=== PATIENT | female | born 1970 | race Caucasian/White ===

== ENCOUNTER 2017-03-10 16:50 | Inpatient (IN) | payer OTHER ==
[~2017-03-10] VITALS: Ht 165.1 cm; Wt 70.0 kg
[2017-03-10 17:12] VITALS: BP 100/83; PULSE 81; TEMP 98
[2017-03-10] MEDS ORDERED: PROTONIX 40MG T40 MG PO (17:12)
[2017-03-10] MEDS ORDERED: CARAFATE 1GM1 G PO (17:13)
[2017-03-10] MEDS ORDERED: ZOFRAN8 MG PO (17:13)
[2017-03-10] MEDS ORDERED: PHENERGAN 25 TA25 MG PO (17:14)
[2017-03-10] MEDS ORDERED: PREVACID 15MG15 M1 PO (17:15)
[2017-03-10] MEDS ORDERED: MIRALAX PA17 GM/Dose PO (17:16)
[2017-03-10 20:00] VITALS: BP 113/68; PULSE 83; TEMP 98.5
[2017-03-10 21:07] LABS: ADD PATHOLOGY DIFF REVIEW NO
[2017-03-10 21:09] LABS: MEAN CELL VOLUME 73 fl (80.0-100.0); MEAN CORPUSCULAR HGB CONC 31 g/dl (33.0-37.0); MEAN PLATELET VOLUME 9.4 fl (7.4-10.4); PLATELET COUNT 311 K/mm3 (130-400); RED BLOOD COUNT 4.06 M/mm3 (4.10-5.30); WHITE BLOOD COUNT 5.9 K/mm3 (4.8-10.8)
[2017-03-10 21:10] LABS: HEMATOCRIT 29.7 % (37.0-47.0); HEMOGLOBIN 9.1 g/dl (12.5-16.0); MEAN CORPUSCULAR HEMOGLOBIN 22 pg (27.0-31.0)
[2017-03-10 21:17] LABS: ADJUSTED CALCIUM 8.7 mg/dL (8.4-10.2); ALBUMIN 3.6 gm/dL (3.5-5.0); BILIRUBIN,TOTAL 0.2 mg/dL (0.0-1.0); CALCIUM 8.4 mg/dL (8.4-10.2); CREATININE, serum 0.5 mg/dL (0.52-1.25); TOTAL PROTEIN 6.5 gm/dL (6.4-8.2)
[2017-03-10 21:39] LABS: BAND 19 % (0-10); LYMPHOCYTE 23 % (20.0-51.0); NEUTROPHILS 52 % (42.0-75.2); TOTAL CELLS COUNTED 100
[2017-03-10 22:01] VITALS: BP 113/68; PULSE 83; TEMP 98.5
[2017-03-11 02:05] LABS: BASO # 0.1 (0.0-0.2); BASO % 0.7 % (0.0-2.0); EOS # 0.2 (0.0-0.7); EOS % 2.2 % (0-4.0); GRAN # 5.3 (1.4-6.5); GRAN % 63.9 % (42.2-75.2); LYMPH # 2.1 (1.2-3.4); LYMPH % 25.2 % (20.0-51.0); MEAN CELL VOLUME 74 fl (80.0-100.0); MEAN CORPUSCULAR HGB CONC 30 g/dl (33.0-37.0); MEAN PLATELET VOLUME 9.2 fl (7.4-10.4); MONO # 0.6 (0.1-0.6); MONO % 7.6 % (1.7-9.3); PLATELET COUNT 327 K/mm3 (130-400); RED BLOOD COUNT 4.13 M/mm3 (4.10-5.30); WHITE BLOOD COUNT 8.2 K/mm3 (4.8-10.8)
[2017-03-11 02:06] LABS: HEMATOCRIT 30.5 % (37.0-47.0); HEMOGLOBIN 9.1 g/dl (12.5-16.0); MEAN CORPUSCULAR HEMOGLOBIN 22 pg (27.0-31.0)
[2017-03-11 02:21] VITALS: BP 107/60; PULSE 76; TEMP 98
[2017-03-11 06:31] VITALS: BP 107/66; PULSE 83; TEMP 97.8
[2017-03-11 09:55] VITALS: BP 101/56; PULSE 75; TEMP 97.9
[2017-03-11 10:44] LABS: BASO % 0.5 % (0.0-2.0); EOS # 0.1 (0.0-0.7); EOS % 2.5 % (0-4.0); GRAN # 3.8 (1.4-6.5); GRAN % 68.1 % (42.2-75.2); LYMPH % 18.8 % (20.0-51.0); MEAN CELL VOLUME 73 fl (80.0-100.0); MEAN CORPUSCULAR HGB CONC 30 g/dl (33.0-37.0); MEAN PLATELET VOLUME 10.1 fl (7.4-10.4); MONO # 0.5 (0.1-0.6); MONO % 9.7 % (1.7-9.3); PLATELET COUNT 249 K/mm3 (130-400); RED BLOOD COUNT 3.87 M/mm3 (4.10-5.30); WHITE BLOOD COUNT 5.5 K/mm3 (4.8-10.8)
[2017-03-11 10:45] LABS: HEMATOCRIT 28.4 % (37.0-47.0); HEMOGLOBIN 8.6 g/dl (12.5-16.0); MEAN CORPUSCULAR HEMOGLOBIN 22 pg (27.0-31.0)
[2017-03-11 14:18] VITALS: BP 121/59; PULSE 87; TEMP 98.3
[2017-03-11 15:03] LABS: MEAN CELL VOLUME 74 fl (80.0-100.0); MEAN CORPUSCULAR HGB CONC 31 g/dl (33.0-37.0); MEAN PLATELET VOLUME 8.9 fl (7.4-10.4); PLATELET COUNT 318 K/mm3 (130-400); RED BLOOD COUNT 4.08 M/mm3 (4.10-5.30); WHITE BLOOD COUNT 6.5 K/mm3 (4.8-10.8)
[2017-03-11 15:05] LABS: HEMOGLOBIN 9.2 g/dl (12.5-16.0); MEAN CORPUSCULAR HEMOGLOBIN 23 pg (27.0-31.0)
[2017-03-11 17:00] LABS: ALBUMIN 3.6 gm/dL (3.5-5.0); BILIRUBIN,TOTAL 0.3 mg/dL (0.0-1.0); CALCIUM 8.7 mg/dL (8.4-10.2); CREATININE, serum 0.47 mg/dL (0.52-1.25); TOTAL PROTEIN 6.6 gm/dL (6.4-8.2)
[2017-03-11 17:35] VITALS: BP 111/62; PULSE 87; TEMP 98.3
[2017-03-11 19:55] LABS: HEMATOCRIT 28.1 % (37.0-47.0); HEMOGLOBIN 8.6 g/dl (12.5-16.0); MEAN CELL VOLUME 73 fl (80.0-100.0); MEAN CORPUSCULAR HEMOGLOBIN 22 pg (27.0-31.0); MEAN CORPUSCULAR HGB CONC 31 g/dl (33.0-37.0); PLATELET COUNT 273 K/mm3 (130-400); RED BLOOD COUNT 3.84 M/mm3 (4.10-5.30); WHITE BLOOD COUNT 6.1 K/mm3 (4.8-10.8)
[2017-03-11 21:18] VITALS: BP 113/60; PULSE 84; TEMP 98.8
[2017-03-12 04:56] VITALS: BP 106/66; PULSE 80; TEMP 98.3
[2017-03-12 05:48] LABS: MEAN CELL VOLUME 73 fl (80.0-100.0); MEAN CORPUSCULAR HGB CONC 31 g/dl (33.0-37.0); MEAN PLATELET VOLUME 9.1 fl (7.4-10.4); PLATELET COUNT 250 K/mm3 (130-400); RED BLOOD COUNT 3.57 M/mm3 (4.10-5.30)
[2017-03-12 05:49] LABS: HEMATOCRIT 26.2 % (37.0-47.0); MEAN CORPUSCULAR HEMOGLOBIN 22 pg (27.0-31.0)
[2017-03-12 09:44] VITALS: BP 105/60; PULSE 70; TEMP 97.9
[2017-03-12 14:31] VITALS: BP 94/60; PULSE 68; TEMP 98
[2017-03-12 17:53] VITALS: BP 120/78; PULSE 76; TEMP 98.3
[2017-03-12 20:00] VITALS: BP 117/76; PULSE 86; TEMP 98.2
[2017-03-13 01:00] VITALS: BP 111/64; PULSE 82; TEMP 98.1
[2017-03-13 05:15] VITALS: BP 112/73; PULSE 85; TEMP 97.9
[2017-03-13 09:42] VITALS: BP 98/70; PULSE 77; TEMP 98
[2017-03-13 11:58] LABS: MEAN CELL VOLUME 72 fl (80.0-100.0); MEAN CORPUSCULAR HGB CONC 31 g/dl (33.0-37.0); MEAN PLATELET VOLUME 9.3 fl (7.4-10.4); PLATELET COUNT 327 K/mm3 (130-400); RED BLOOD COUNT 4.12 M/mm3 (4.10-5.30); WHITE BLOOD COUNT 8.7 K/mm3 (4.8-10.8)
[2017-03-13 12:10] LABS: HEMATOCRIT 29.7 % (37.0-47.0); HEMOGLOBIN 9.3 g/dl (12.5-16.0); MEAN CORPUSCULAR HEMOGLOBIN 23 pg (27.0-31.0)
[2017-03-13 13:23] VITALS: BP 112/72; PULSE 97; TEMP 98.8
[2017-03-13 17:50] VITALS: BP 116/70; PULSE 86; TEMP 98.5
[2017-03-13 20:47] VITALS: BP 127/72; PULSE 91; TEMP 9836
[2017-03-14] MEDS ORDERED: ZOFRAN ODT4 MG PO (20:17)
[2017-03-14] MEDS ORDERED: PERCOCET 325 MG1 TA2 PO (20:17)
[2017-03-14] MEDS ORDERED: PHENERGAN 25 TA25 MG PO (20:17)
== END 2017-03-14 00:20 | disposition left against medical advice (07) | DRG 379 ==
LOC: SURG 16:50
PROVIDERS: Family Medicine; Internal Medicine Cardiovascular Disease; Internal Medicine Gastroenterology
PROC: 0DJ08ZZ Inspection of Upper Intestinal Tract, Via Natural or Artificial Opening Endoscopic (ICD-10-PCS; principal; 2017-03-10 18:20)
DX: K26.0 Acute duodenal ulcer with hemorrhage (principal); F17.210 Nicotine dependence, cigarettes, uncomplicated; I95.9 Hypotension, unspecified; Z98.84 Bariatric surgery status
CPT/HCPCS: OP; 99223-AI; 99232-AI; C9113; J1170; J2405; J2550; J2704; J7030; Q9967

== ENCOUNTER 2017-03-14 17:52 | Emergency (ER) | payer OTHER ==
[~2017-03-14] VITALS: Ht 165.1 cm; Wt 63.6 kg
[~2017-03-14 17:52] MED LIST: CARAFATE 1GM1 G PO; MIRALAX PA17 GM/Dose PO; PHENERGAN 25 TA25 MG PO; PREVACID 15MG15 M1 PO; PROTONIX 40MG T40 MG PO; ZOFRAN8 MG PO
[2017-03-14 19:16] LABS: PH 8 (5-8); SQUAMOUS EPITHELIAL 0-2 /hpf; URINE APPEARANCE Clear; URINE BACTERIA None Seen /hpf; URINE BILIRUBIN Negative (NEGATIVE); URINE BLOOD Negative (NEGATIVE); URINE COLOR Straw; URINE GLUCOSE Negative (NEGATIVE); URINE KETONE Negative (NEGATIVE); URINE RBC 0-2 /hpf; URINE UROBILINOGEN Negative (NEGATIVE)
[2017-03-14 19:42] LABS: BASO # 0.1 (0.0-0.2); BASO % 0.8 % (0.0-2.0); EOS # 0.1 (0.0-0.7); EOS % 1.1 % (0-4.0); GRAN # 4.8 (1.4-6.5); GRAN % 66.5 % (42.2-75.2); LYMPH # 1.7 (1.2-3.4); LYMPH % 23.4 % (20.0-51.0); MEAN CELL VOLUME 74 fl (80.0-100.0); MEAN CORPUSCULAR HGB CONC 30 g/dl (33.0-37.0); MEAN PLATELET VOLUME 9.1 fl (7.4-10.4); MONO # 0.6 (0.1-0.6); MONO % 7.6 % (1.7-9.3); PLATELET COUNT 325 K/mm3 (130-400); REDCELL DISTRIBUTION WIDTH-CV 18.3 % (11.5-14.5); WHITE BLOOD COUNT 7.2 K/mm3 (4.8-10.8)
[2017-03-14 19:43] LABS: HEMATOCRIT 31.2 % (37.0-47.0); HEMOGLOBIN 9.4 g/dl (12.5-16.0); MEAN CORPUSCULAR HEMOGLOBIN 22 pg (27.0-31.0)
[2017-03-14 20:07] LABS: ADJUSTED CALCIUM 9.2 mg/dL (8.4-10.2); BILIRUBIN,TOTAL 0.3 mg/dL (0.0-1.0); CALCIUM 9.2 mg/dL (8.4-10.2); CREATININE, serum 0.47 mg/dL (0.52-1.25); POTASSIUM 4.2 mmol/L (3.4-5.0); TOTAL PROTEIN 7.1 gm/dL (6.4-8.2)
[2017-03-14] MEDS ORDERED: ZOFRAN ODT4 MG PO (20:17)
[2017-03-14] MEDS ORDERED: PHENERGAN 25 TA25 MG PO (20:17)
[2017-03-14] MEDS ORDERED: PERCOCET 325 MG1 TA2 PO (20:17)
[2017-03-14 20:27] VITALS: BP 111/77; PULSE 95; TEMP 98.4
== END 2017-03-14 20:25 | disposition home or self-care (01) ==
LOC: COL.ER 17:52
PROVIDERS: Emergency Medicine
DX: R10.13 Epigastric pain (principal); R10.12 Left upper quadrant pain; R11.2 Nausea with vomiting, unspecified; E11.9 Type 2 diabetes mellitus without complications; E66.01 Morbid (severe) obesity due to excess calories; F17.210 Nicotine dependence, cigarettes, uncomplicated; Z98.84 Bariatric surgery status; Z68.23 Body mass index [BMI] 23.0-23.9, adult

== ENCOUNTER 2017-12-26 11:36 | Inpatient (IN) | payer OTHER ==
[~2017-12-26] VITALS: Ht 165.1 cm; Wt 65.3 kg
[~2017-12-26 11:36] MED LIST changes: +PERCOCET 325 MG1 TA2 PO; +ZOFRAN ODT4 MG PO
[2017-12-26 12:07] LABS: BASO # 0.1 (0.0-0.2); BASO % 0.7 % (0.0-2.0); EOS # 0.2 (0.0-0.7); EOS % 1.8 % (0-4.0); GRAN # 6.3 (1.4-6.5); GRAN % 75.3 % (42.2-75.2); HEMOGLOBIN 10.6 g/dl (12.5-16.0); LYMPH # 1.4 (1.2-3.4); LYMPH % 16.7 % (20.0-51.0); MEAN CELL VOLUME 76 fl (80.0-100.0); MEAN CORPUSCULAR HEMOGLOBIN 23 pg (27.0-31.0); MEAN CORPUSCULAR HGB CONC 29 g/dl (33.0-37.0); MEAN PLATELET VOLUME 9.4 fl (7.4-10.4); MONO # 0.4 (0.1-0.6); MONO % 5.3 % (1.7-9.3); PLATELET COUNT 418 K/mm3 (130-400); RED BLOOD COUNT 4.72 M/mm3 (4.10-5.30); REDCELL DISTRIBUTION WIDTH-CV 26.3 % (11.5-14.5)
[2017-12-26 12:11] LABS: PROTHROMBIN TIME 11.6 SECONDS (9.7-12.8)
[2017-12-26 12:14] LABS: PARTIAL THROMBOPLASTIN TIME 32.2 SECONDS (26.0-37.0)
[2017-12-26 12:22] LABS: ALANINE AMINOTRANSFERASE 21 U/L (9-52); ALBUMIN 3.9 gm/dL (3.5-5.0); ALKALINE PHOSPHATASE 99 U/L (50-136); ANION GAP 10 mmol/L (7-16); AST,SGOT 29 U/L (15-37); BILIRUBIN,TOTAL 0.5 mg/dL (0.0-1.0); BLOOD UREA NITROGEN 8 mg/dL (7-17); C-REACTIVE PROTEIN 0.6 mg/dL (0.0-0.9); CARBON DIOXIDE 25 mmol/L (22-30); CHLORIDE 105 mmol/L (98-107); CREATININE, serum 0.46 mg/dL (0.52-1.25); GLUCOSE 112 mg/dL (74-106); LIPASE 31 U/L (23-300); POTASSIUM 3.7 mmol/L (3.4-5.0); SODIUM 141 mmol/L (137-145); TOTAL PROTEIN 7.2 gm/dL (6.4-8.2)
[2017-12-26 12:32] LABS: TROPONIN-I < 0.012 ng/mL (0.000-0.034)
[2017-12-26 12:56] LABS: COLLECTION METHOD CLEAN CATCH
[2017-12-26 13:16] LABS: MUCOUS Present /lpf; PH 8 (5-8); SQUAMOUS EPITHELIAL 0-2 /hpf; URINE APPEARANCE Clear; URINE BACTERIA None Seen /hpf; URINE BILIRUBIN Negative (NEGATIVE); URINE BLOOD 3+ (NEGATIVE); URINE COLOR Yellow; URINE GLUCOSE Negative (NEGATIVE); URINE KETONE Negative (NEGATIVE); URINE LEUKOCYTE ESTERASE Negative (NEGATIVE); URINE NITRATE Negative (NEGATIVE); URINE PROTEIN(semi-quant) Negative (NEGATIVE); URINE RBC >50 /hpf; URINE UROBILINOGEN Negative (NEGATIVE)
[2017-12-26 15:16] LABS: IRON,SERUM 22 ug/dL (35-150)
[2017-12-26 15:26] LABS: TOTAL IRON BINDING CAPACITY 407 ug/dL (265-497)
[2017-12-26 15:26] LABS: RETIC # 0.07 M/mm3 (0.02-0.16); RETIC % 1.7 % (0.5-3.52)
[2017-12-26 15:27] LABS: HEMATOCRIT 32.9 % (37.0-47.0); HEMOGLOBIN 9.6 g/dl (12.5-16.0)
[2017-12-26 15:55] LABS: FERRITIN 44 ng/mL (6-137)
[2017-12-26 17:28] VITALS: BP 121/74; PULSE 74; TEMP 98.4
[2017-12-26 19:00] VITALS: BP 121/74; PULSE 74; TEMP 98.4
[2017-12-26 20:42] VITALS: BP 108/80; PULSE 71; TEMP 98.5
[2017-12-26 21:35] LABS: HEMATOCRIT 31.1 % (37.0-47.0); HEMOGLOBIN 9.4 g/dl (12.5-16.0)
[2017-12-27 00:43] VITALS: BP 112/63; PULSE 84; TEMP 98.3
[2017-12-27 03:01] LABS: BASO % 0.5 % (0.0-2.0); EOS # 0.2 (0.0-0.7); EOS % 1.9 % (0-4.0); GRAN # 6.8 (1.4-6.5); GRAN % 86.5 % (42.2-75.2); LYMPH # 0.7 (1.2-3.4); LYMPH % 9.1 % (20.0-51.0); MEAN CELL VOLUME 79 fl (80.0-100.0); MEAN CORPUSCULAR HGB CONC 29 g/dl (33.0-37.0); MEAN PLATELET VOLUME 9.5 fl (7.4-10.4); MONO # 0.1 (0.1-0.6); MONO % 1.6 % (1.7-9.3); RED BLOOD COUNT 4.07 M/mm3 (4.10-5.30); REDCELL DISTRIBUTION WIDTH-CV 25.2 % (11.5-14.5)
[2017-12-27 03:07] LABS: HEMOGLOBIN 9.3 g/dl (12.5-16.0); MEAN CORPUSCULAR HEMOGLOBIN 23 pg (27.0-31.0)
[2017-12-27 03:08] LABS: PLATELET COUNT 309 K/mm3 (130-400)
[2017-12-27 03:11] LABS: CALCIUM 8.5 mg/dL (8.4-10.2); CREATININE, serum 0.47 mg/dL (0.52-1.25); POTASSIUM 3.6 mmol/L (3.4-5.0)
[2017-12-27 04:48] VITALS: BP 109/70; PULSE 108; TEMP 103.1
[2017-12-27 05:41] LABS: COLLECTION METHOD CLEAN CATCH
[2017-12-27 05:48] LABS: MUCOUS Present /lpf; PH 5 (5-8); URINE APPEARANCE Hazy; URINE BACTERIA None Seen /hpf; URINE BILIRUBIN Negative (NEGATIVE); URINE BLOOD Negative (NEGATIVE); URINE COLOR Yellow; URINE GLUCOSE Negative (NEGATIVE); URINE KETONE Negative (NEGATIVE); URINE LEUKOCYTE ESTERASE 1+ (NEGATIVE); URINE NITRATE Negative (NEGATIVE); URINE PROTEIN(semi-quant) Negative (NEGATIVE); URINE RBC 0-2 /hpf; URINE UROBILINOGEN Negative (NEGATIVE)
[2017-12-27 05:54] LABS: TRICYCLIC ANTIDEPRESS URINE NEGATIVE
[2017-12-27 08:22] LABS: ALANINE AMINOTRANSFERASE 30 U/L (9-52); ALBUMIN 3.5 gm/dL (3.5-5.0); ALKALINE PHOSPHATASE 103 U/L (50-136); ANION GAP 11 mmol/L (7-16); AST,SGOT 29 U/L (15-37); BILIRUBIN,TOTAL 0.4 mg/dL (0.0-1.0); BLOOD UREA NITROGEN 6 mg/dL (7-17); CALCIUM 8.2 mg/dL (8.4-10.2); CARBON DIOXIDE 23 mmol/L (22-30); CHLORIDE 102 mmol/L (98-107); CREATININE, serum 0.51 mg/dL (0.52-1.25); GLUCOSE 103 mg/dL (74-106); POTASSIUM 3.1 mmol/L (3.4-5.0); SODIUM 137 mmol/L (137-145); TOTAL PROTEIN 6.4 gm/dL (6.4-8.2)
[2017-12-27 08:27] LABS: ALCOHOL(ethanol),MEDICAL < 10 mg/dL
[2017-12-27 09:07] VITALS: BP 109/67; PULSE 96; TEMP 99.3
[2017-12-27 13:34] VITALS: BP 94/39; PULSE 85; TEMP 99.2
[2017-12-27 16:10] VITALS: BP 135/79; PULSE 76; TEMP 98.9
[2017-12-27 16:56] LABS: HEMATOCRIT 26.7 % (37.0-47.0)
[2017-12-27 20:22] VITALS: BP 112/64; PULSE 84; TEMP 98.3
[2017-12-27 21:17] LABS: HEMATOCRIT 28.4 % (37.0-47.0); HEMOGLOBIN 8.4 g/dl (12.5-16.0)
[2017-12-28 00:31] VITALS: BP 106/61; PULSE 78; TEMP 97.6
[2017-12-28 04:30] VITALS: BP 84/44; PULSE 57; TEMP 97.9
[2017-12-28 07:58] LABS: BASO % 0.6 % (0.0-2.0); EOS # 0.2 (0.0-0.7); EOS % 2.7 % (0-4.0); GRAN # 4.5 (1.4-6.5); GRAN % 67.3 % (42.2-75.2); LYMPH # 1.2 (1.2-3.4); LYMPH % 17.3 % (20.0-51.0); MEAN CELL VOLUME 79 fl (80.0-100.0); MEAN CORPUSCULAR HGB CONC 29 g/dl (33.0-37.0); MEAN PLATELET VOLUME 9.8 fl (7.4-10.4); MONO # 0.8 (0.1-0.6); MONO % 11.7 % (1.7-9.3); PLATELET COUNT 267 K/mm3 (130-400); RED BLOOD COUNT 3.45 M/mm3 (4.10-5.30); REDCELL DISTRIBUTION WIDTH-CV 25.2 % (11.5-14.5)
[2017-12-28 08:00] LABS: HEMATOCRIT 27.4 % (37.0-47.0); MEAN CORPUSCULAR HEMOGLOBIN 23 pg (27.0-31.0)
[2017-12-28 08:13] LABS: CALCIUM 7.8 mg/dL (8.4-10.2); CREATININE, serum 0.52 mg/dL (0.52-1.25); POTASSIUM 3.6 mmol/L (3.4-5.0)
[2017-12-28 08:26] VITALS: BP 87/85; PULSE 61; TEMP 98.2
[2017-12-28] MEDS ORDERED: NORCO 325 MG-51 TAB PO (09:39)
[2017-12-28] MEDS ORDERED: ZOFRAN 4MG T4 MG/TAB PO (09:39)
[2017-12-28] MEDS ORDERED: PROTONIX 40MG T40 MG PO (10:39)
== END 2017-12-28 11:53 | disposition home or self-care (01) | DRG 381 ==
LOC: COL.ER 11:36 → MEDICAL 13:42
PROVIDERS: Emergency Medicine; Internal Medicine Gastroenterology; Nurse Practitioner Family; Physician Assistant
PROC: 0DJ08ZZ Inspection of Upper Intestinal Tract, Via Natural or Artificial Opening Endoscopic (ICD-10-PCS; principal; 2017-12-27 11:45)
DX: K22.11 Ulcer of esophagus with bleeding (principal); D62 Acute posthemorrhagic anemia; Z87.891 Personal history of nicotine dependence; Z98.84 Bariatric surgery status; Z85.42 Personal history of malignant neoplasm of other parts of uterus; R50.9 Fever, unspecified
CPT/HCPCS: 99223-AI; 99233-AI; 99239; C1751; C9113; G0378; J0696; J1170; J2405; J2550; J2704; J7030; J7120; Q9967

== ENCOUNTER 2018-01-04 15:48 | Emergency (ER) | payer OTHER ==
[~2018-01-04] VITALS: Ht 165.1 cm; Wt 59.1 kg
[~2018-01-04 15:48] MED LIST changes: +NORCO 325 MG-51 TAB PO; +ZOFRAN 4MG T4 MG/TAB PO
[2018-01-04 15:50] VITALS: BP 117/70; TEMP 98
[2018-01-04 16:50] LABS: COLLECTION METHOD CLEAN CATCH
[2018-01-04 16:56] LABS: MUCOUS Present /lpf; PH 6 (5-8); SQUAMOUS EPITHELIAL 20-50 /hpf; URINE APPEARANCE Cloudy; URINE BACTERIA Rare /hpf; URINE BILIRUBIN Negative (NEGATIVE); URINE BLOOD Negative (NEGATIVE); URINE COLOR Yellow; URINE GLUCOSE Negative (NEGATIVE); URINE KETONE Negative (NEGATIVE); URINE LEUKOCYTE ESTERASE 1+ (NEGATIVE); URINE NITRATE Negative (NEGATIVE); URINE PROTEIN(semi-quant) Negative (NEGATIVE); URINE UROBILINOGEN Negative (NEGATIVE)
[2018-01-04 17:04] LABS: BASO # 0.1 (0.0-0.2); BASO % 0.7 % (0.0-2.0); EOS # 0.1 (0.0-0.7); EOS % 1.7 % (0-4.0); GRAN # 6.3 (1.4-6.5); GRAN % 77.4 % (42.2-75.2); HEMATOCRIT 38.3 % (37.0-47.0); HEMOGLOBIN 11.5 g/dl (12.5-16.0); LYMPH # 1.3 (1.2-3.4); LYMPH % 15.4 % (20.0-51.0); MEAN CELL VOLUME 75 fl (80.0-100.0); MEAN CORPUSCULAR HEMOGLOBIN 23 pg (27.0-31.0); MEAN CORPUSCULAR HGB CONC 30 g/dl (33.0-37.0); MEAN PLATELET VOLUME 9.2 fl (7.4-10.4); MONO # 0.4 (0.1-0.6); MONO % 4.3 % (1.7-9.3); PLATELET COUNT 338 K/mm3 (130-400); RED BLOOD COUNT 5.11 M/mm3 (4.10-5.30); REDCELL DISTRIBUTION WIDTH-CV 24.2 % (11.5-14.5)
[2018-01-04 17:15] LABS: ALANINE AMINOTRANSFERASE 19 U/L (9-52); ALBUMIN 4.3 gm/dL (3.5-5.0); ALKALINE PHOSPHATASE 107 U/L (50-136); ANION GAP 11 mmol/L (7-16); AST,SGOT 25 U/L (15-37); BILIRUBIN,TOTAL 0.2 mg/dL (0.0-1.0); BLOOD UREA NITROGEN 14 mg/dL (7-17); C-REACTIVE PROTEIN 0.6 mg/dL (0.0-0.9); CALCIUM 9.6 mg/dL (8.4-10.2); CARBON DIOXIDE 27 mmol/L (22-30); CHLORIDE 100 mmol/L (98-107); CREATININE, serum 0.46 mg/dL (0.52-1.25); GLUCOSE 101 mg/dL (74-106); LIPASE 24 U/L (23-300); POTASSIUM 4.2 mmol/L (3.4-5.0); SODIUM 139 mmol/L (137-145); TOTAL PROTEIN 7.8 gm/dL (6.4-8.2)
[2018-01-04 17:24] LABS: TROPONIN-I < 0.012 ng/mL (0.000-0.034)
[2018-01-04 18:41] LABS: COLLECTION METHOD CLEAN CATCH
[2018-01-04 18:59] LABS: BUDDING YEAST Present /hpf; MUCOUS Present /lpf; PH 8 (5-8); SQUAMOUS EPITHELIAL 0-2 /hpf; URINE APPEARANCE Clear; URINE BACTERIA None Seen /hpf; URINE BILIRUBIN Negative (NEGATIVE); URINE BLOOD 3+ (NEGATIVE); URINE COLOR Yellow; URINE GLUCOSE Negative (NEGATIVE); URINE KETONE Negative (NEGATIVE); URINE LEUKOCYTE ESTERASE Negative (NEGATIVE); URINE NITRATE Negative (NEGATIVE); URINE PROTEIN(semi-quant) Negative (NEGATIVE); URINE RBC >50 /hpf; URINE UROBILINOGEN Negative (NEGATIVE)
[2018-01-04] MEDS ORDERED: PROTONIX 40MG T40 MG PO (19:14)
[2018-01-04] MEDS ORDERED: ZOFRAN 4MG T4 MG/TAB PO (19:14)
[2018-01-04 19:35] VITALS: PULSE 68
== END 2018-01-04 19:35 | disposition home or self-care (01) ==
LOC: COL.ER 15:48
PROVIDERS: Emergency Medicine
DX: K92.2 Gastrointestinal hemorrhage, unspecified (principal); F17.210 Nicotine dependence, cigarettes, uncomplicated; Z98.84 Bariatric surgery status
CPT/HCPCS: C9113; J1170; J2405; J7030; Q9967

== ENCOUNTER 2018-01-13 15:38 | Observation (INO) | payer OTHER ==
[~2018-01-13] VITALS: Ht 165.1 cm; Wt 67.0 kg
[2018-01-13] MEDS ORDERED: CARAFATE 1GM1 G PO (15:55)
[2018-01-13 16:19] LABS: BASO % 0.6 % (0.0-2.0); EOS # 0.2 (0.0-0.7); EOS % 2.6 % (0-4.0); GRAN # 4.5 (1.4-6.5); GRAN % 64.5 % (42.2-75.2); LYMPH # 1.9 (1.2-3.4); LYMPH % 26.5 % (20.0-51.0); MEAN CELL VOLUME 75 fl (80.0-100.0); MEAN CORPUSCULAR HEMOGLOBIN 23 pg (27.0-31.0); MEAN CORPUSCULAR HGB CONC 30 g/dl (33.0-37.0); MEAN PLATELET VOLUME 9.2 fl (7.4-10.4); MONO # 0.4 (0.1-0.6); MONO % 5.5 % (1.7-9.3); PLATELET COUNT 333 K/mm3 (130-400); RED BLOOD COUNT 4.87 M/mm3 (4.10-5.30); REDCELL DISTRIBUTION WIDTH-CV 23.1 % (11.5-14.5)
[2018-01-13 16:20] LABS: HEMATOCRIT 36.3 % (37.0-47.0)
[2018-01-13 16:21] LABS: PROTHROMBIN TIME 11.5 SECONDS (9.7-12.8)
[2018-01-13 16:35] LABS: ALBUMIN 4.4 gm/dL (3.5-5.0); BILIRUBIN,TOTAL 0.3 mg/dL (0.0-1.0); CALCIUM 9.6 mg/dL (8.4-10.2); CREATININE, serum 0.49 mg/dL (0.52-1.25); TOTAL PROTEIN 7.7 gm/dL (6.4-8.2)
[2018-01-13 18:20] VITALS: BP 112/70; PULSE 67
[2018-01-13 21:02] VITALS: BP 114/82; PULSE 71; TEMP 98.5
[2018-01-13 22:18] LABS: HEMOGLOBIN 10.4 g/dl (12.5-16.0)
[2018-01-13 22:21] LABS: HEMATOCRIT 34.6 % (37.0-47.0)
[2018-01-14 04:57] VITALS: BP 119/82; PULSE 101; TEMP 99.1
[2018-01-14 07:52] VITALS: BP 129/72; PULSE 96; TEMP 98.7
[2018-01-14 08:02] LABS: COLLECTION METHOD CLEAN CATCH
[2018-01-14 08:15] LABS: MUCOUS Present /lpf; PH 5 (5-8); SQUAMOUS EPITHELIAL 0-2 /hpf; URINE APPEARANCE Clear; URINE BACTERIA None Seen /hpf; URINE BILIRUBIN Negative (NEGATIVE); URINE BLOOD Negative (NEGATIVE); URINE COLOR Yellow; URINE GLUCOSE Negative (NEGATIVE); URINE KETONE Negative (NEGATIVE); URINE LEUKOCYTE ESTERASE Negative (NEGATIVE); URINE NITRATE Negative (NEGATIVE); URINE PROTEIN(semi-quant) Negative (NEGATIVE); URINE RBC 0-2 /hpf; URINE UROBILINOGEN Negative (NEGATIVE)
[2018-01-14 11:35] LABS: GASTROCCULT POSITIVE; pH GASTRIC CONTENTS 1
[2018-01-14 12:52] VITALS: BP 112/83; PULSE 101; TEMP 99.2
[2018-01-14 13:17] LABS: BASO # 0.1 (0.0-0.2); BASO % 0.5 % (0.0-2.0); EOS # 0.1 (0.0-0.7); EOS % 1.2 % (0-4.0); GRAN # 8.5 (1.4-6.5); LYMPH % 9.5 % (20.0-51.0); MEAN CELL VOLUME 76 fl (80.0-100.0); MEAN CORPUSCULAR HGB CONC 30 g/dl (33.0-37.0); MEAN PLATELET VOLUME 9.4 fl (7.4-10.4); MONO # 0.8 (0.1-0.6); MONO % 7.5 % (1.7-9.3); PLATELET COUNT 265 K/mm3 (130-400); RED BLOOD COUNT 4.23 M/mm3 (4.10-5.30); REDCELL DISTRIBUTION WIDTH-CV 22.2 % (11.5-14.5)
[2018-01-14 13:18] LABS: HEMOGLOBIN 9.6 g/dl (12.5-16.0); MEAN CORPUSCULAR HEMOGLOBIN 23 pg (27.0-31.0)
[2018-01-14 13:25] LABS: CALCIUM 8.7 mg/dL (8.4-10.2); CREATININE, serum 0.5 mg/dL (0.52-1.25); POTASSIUM 3.9 mmol/L (3.4-5.0)
== END 2018-01-14 17:00 | disposition left against medical advice (07) ==
LOC: COL.ER 15:38 → SURG 18:18
PROVIDERS: Emergency Medicine; Hospitalist; Internal Medicine Gastroenterology; Nurse Practitioner Family
DX: R10.11 Right upper quadrant pain (principal); K92.0 Hematemesis; K92.2 Gastrointestinal hemorrhage, unspecified; F17.210 Nicotine dependence, cigarettes, uncomplicated; Z90.710 Acquired absence of both cervix and uterus; Z90.49 Acquired absence of other specified parts of digestive tract; Z83.3 Family history of diabetes mellitus; Z88.6 Allergy status to analgesic agent; Z88.2 Allergy status to sulfonamides; Z88.8 Allergy status to other drugs, medicaments and biological substances; Z53.8 Procedure and treatment not carried out for other reasons
CPT/HCPCS: C9113; G0378; J1170; J2060; J2270; J2405; J2550; J7030; Q9967

== ENCOUNTER 2018-02-16 18:04 | Emergency (ER) | payer OTHER ==
[~2018-02-16] VITALS: Ht 165.1 cm; Wt 62.7 kg
[2018-02-16 18:09] VITALS: TEMP 99
[2018-02-16] MEDS ORDERED: NORCO 325 MG-51 TAB PO (19:17)
[2018-02-16 20:22] VITALS: BP 110/69; PULSE 82
== END 2018-02-16 20:25 | disposition home or self-care (01) ==
LOC: COL.ER 18:04
DX: M79.641 Pain in right hand (principal); Z88.5 Allergy status to narcotic agent; W01.0XXA Fall on same level from slipping, tripping and stumbling without subsequent striking against object, initial encounter; Y92.009 Unspecified place in unspecified non-institutional (private) residence as the place of occurrence of the external cause
CPT/HCPCS: J3010; Q4021; Q4050

== ENCOUNTER 2018-03-03 13:05 | Emergency (ER) | payer OTHER ==
[~2018-03-03] VITALS: Ht 165.1 cm; Wt 65.0 kg
[2018-03-03 13:09] VITALS: TEMP 98.7
[2018-03-03 13:48] LABS: BASO % 0.5 % (0.0-2.0); EOS # 0.1 (0.0-0.7); EOS % 1.8 % (0-4.0); GRAN # 5.7 (1.4-6.5); GRAN % 73.7 % (42.2-75.2); HEMOGLOBIN 10.6 g/dl (12.5-16.0); LYMPH # 1.5 (1.2-3.4); LYMPH % 18.6 % (20.0-51.0); MEAN CELL VOLUME 72 fl (80.0-100.0); MEAN CORPUSCULAR HEMOGLOBIN 22 pg (27.0-31.0); MEAN CORPUSCULAR HGB CONC 31 g/dl (33.0-37.0); MONO # 0.4 (0.1-0.6); PLATELET COUNT 403 K/mm3 (130-400); RED BLOOD COUNT 4.78 M/mm3 (4.10-5.30)
[2018-03-03 13:50] LABS: HEMATOCRIT 34.6 % (37.0-47.0)
[2018-03-03 14:01] LABS: BILIRUBIN,TOTAL 0.2 mg/dL (0.0-1.0); CREATININE, serum 0.43 mg/dL (0.52-1.25); POTASSIUM 4.1 mmol/L (3.4-5.0); TOTAL PROTEIN 7.6 gm/dL (6.4-8.2)
[2018-03-03 14:13] LABS: COLLECTION METHOD CLEAN CATCH
[2018-03-03 14:20] LABS: MUCOUS Present /lpf; PH 6 (5-8); URINE APPEARANCE Clear; URINE BACTERIA Rare /hpf; URINE BILIRUBIN Negative (NEGATIVE); URINE BLOOD Negative (NEGATIVE); URINE COLOR Yellow; URINE GLUCOSE Negative (NEGATIVE); URINE KETONE Negative (NEGATIVE); URINE LEUKOCYTE ESTERASE Trace (NEGATIVE); URINE NITRATE Negative (NEGATIVE); URINE PROTEIN(semi-quant) Negative (NEGATIVE); URINE RBC 0-2 /hpf; URINE UROBILINOGEN Negative (NEGATIVE)
[2018-03-03 14:28] LABS: TRICYCLIC ANTIDEPRESS URINE NEGATIVE
[2018-03-03 15:40] VITALS: BP 110/78; PULSE 74
[2018-03-04] MEDS ORDERED: NEURONTIN800 MG/TAB PO (00:36)
[2018-03-04] MEDS ORDERED: PHENERGAN 25 TA25 MG PO ×2 (00:36→13:16)
[2018-03-04] MEDS ORDERED: TYLENOL W/COD1 UDTAB PO (13:24)
== END 2018-03-03 15:43 | disposition home or self-care (01) ==
LOC: COL.ER 13:05
PROVIDERS: Family Medicine
DX: K92.0 Hematemesis (principal); K21.9 Gastro-esophageal reflux disease without esophagitis; Z90.49 Acquired absence of other specified parts of digestive tract; Z98.84 Bariatric surgery status
CPT/HCPCS: C9113; J1170; J2405; J2550; J7030

== ENCOUNTER 2018-03-03 21:02 | Inpatient (IN) | payer OTHER ==
[~2018-03-03] VITALS: Ht 165.1 cm; Wt 68.0 kg
[2018-03-03 22:37] LABS: BASO % 0.4 % (0.0-2.0); EOS # 0.1 (0.0-0.7); EOS % 1.4 % (0-4.0); LYMPH % 20.2 % (20.0-51.0); MEAN CELL VOLUME 73 fl (80.0-100.0); MEAN CORPUSCULAR HGB CONC 31 g/dl (33.0-37.0); MEAN PLATELET VOLUME 9.2 fl (7.4-10.4); MONO # 0.5 (0.1-0.6); MONO % 5.5 % (1.7-9.3); PLATELET COUNT 391 K/mm3 (130-400); RED BLOOD COUNT 4.23 M/mm3 (4.10-5.30)
[2018-03-03 22:38] LABS: HEMOGLOBIN 9.5 g/dl (12.5-16.0); MEAN CORPUSCULAR HEMOGLOBIN 22 pg (27.0-31.0)
[2018-03-03 22:50] LABS: ALBUMIN 3.7 gm/dL (3.5-5.0); BILIRUBIN,TOTAL 0.1 mg/dL (0.0-1.0); CALCIUM 8.3 mg/dL (8.4-10.2); CREATININE, serum 0.45 mg/dL (0.52-1.25); POTASSIUM 3.8 mmol/L (3.4-5.0); TOTAL PROTEIN 7.2 gm/dL (6.4-8.2)
[2018-03-03 23:53] LABS: COLLECTION METHOD CLEAN CATCH
[2018-03-04] LABS: MUCOUS Present /lpf; PH 5 (5-8); URINE APPEARANCE Hazy; URINE BACTERIA Rare /hpf; URINE BILIRUBIN Negative (NEGATIVE); URINE BLOOD Negative (NEGATIVE); URINE COLOR Yellow; URINE GLUCOSE Negative (NEGATIVE); URINE KETONE Negative (NEGATIVE); URINE LEUKOCYTE ESTERASE 2+ (NEGATIVE); URINE NITRATE Negative (NEGATIVE); URINE PROTEIN(semi-quant) Negative (NEGATIVE); URINE UROBILINOGEN Negative (NEGATIVE)
[2018-03-04 00:08] LABS: GASTROCCULT POSITIVE
[2018-03-04 00:09] LABS: pH GASTRIC CONTENTS 1
[2018-03-04] MEDS ORDERED: PHENERGAN 25 TA25 MG PO ×2 (00:36→13:16)
[2018-03-04] MEDS ORDERED: NEURONTIN800 MG/TAB PO (00:36)
[2018-03-04 02:41] VITALS: BP 122/78; PULSE 87; TEMP 98.3
[2018-03-04 04:11] LABS: BASO % 0.4 % (0.0-2.0); EOS # 0.2 (0.0-0.7); EOS % 1.8 % (0-4.0); GRAN # 6.1 (1.4-6.5); GRAN % 68.5 % (42.2-75.2); LYMPH % 22.4 % (20.0-51.0); MEAN CELL VOLUME 75 fl (80.0-100.0); MEAN CORPUSCULAR HGB CONC 30 g/dl (33.0-37.0); MEAN PLATELET VOLUME 9.1 fl (7.4-10.4); MONO # 0.6 (0.1-0.6); MONO % 6.6 % (1.7-9.3); PLATELET COUNT 318 K/mm3 (130-400); RED BLOOD COUNT 3.76 M/mm3 (4.10-5.30)
[2018-03-04 04:13] LABS: HEMATOCRIT 28.2 % (37.0-47.0); HEMOGLOBIN 8.4 g/dl (12.5-16.0); MEAN CORPUSCULAR HEMOGLOBIN 22 pg (27.0-31.0)
[2018-03-04 04:21] LABS: CREATININE, serum 0.5 mg/dL (0.52-1.25); POTASSIUM 3.9 mmol/L (3.4-5.0)
[2018-03-04 08:54] VITALS: BP 97/59; PULSE 72; TEMP 98.2
[2018-03-04 11:25] VITALS: BP 121/77; PULSE 77
[2018-03-04 12:07] VITALS: BP 107/64; PULSE 74
[2018-03-04] MEDS ORDERED: TYLENOL W/COD1 UDTAB PO (13:24)
== END 2018-03-04 13:50 | disposition home or self-care (01) | DRG 394 ==
LOC: COL.ER 21:02 → SURG 03-04 00:22
PROVIDERS: Internal Medicine Gastroenterology; Nurse Practitioner; Physician Assistant
PROC: 0DJ08ZZ Inspection of Upper Intestinal Tract, Via Natural or Artificial Opening Endoscopic (ICD-10-PCS; principal; 2018-03-04 09:15)
DX: K95.89 Other complications of other bariatric procedure (principal); K22.10 Ulcer of esophagus without bleeding; K92.0 Hematemesis; K31.84 Gastroparesis; D64.9 Anemia, unspecified; F17.210 Nicotine dependence, cigarettes, uncomplicated; Z98.84 Bariatric surgery status
CPT/HCPCS: OP; C9113; J1170; J2550; J2704; J7030

== ENCOUNTER 2018-03-11 14:42 | Emergency (ER) | payer OTHER ==
[~2018-03-11] VITALS: Ht 165.1 cm; Wt 63.6 kg
[~2018-03-11 14:42] MED LIST changes: +NEURONTIN800 MG/TAB PO; +TYLENOL W/COD1 UDTAB PO
[2018-03-11 14:45] VITALS: TEMP 98.6
[2018-03-11 15:49] LABS: BASO # 0.1 (0.0-0.2); BASO % 0.7 % (0.0-2.0); EOS # 0.1 (0.0-0.7); EOS % 1.3 % (0-4.0); GRAN # 6.5 (1.4-6.5); GRAN % 71.9 % (42.2-75.2); HEMOGLOBIN 10.4 g/dl (12.5-16.0); LYMPH # 1.8 (1.2-3.4); LYMPH % 20.3 % (20.0-51.0); MEAN CELL VOLUME 71 fl (80.0-100.0); MEAN CORPUSCULAR HEMOGLOBIN 22 pg (27.0-31.0); MEAN CORPUSCULAR HGB CONC 31 g/dl (33.0-37.0); MEAN PLATELET VOLUME 9.3 fl (7.4-10.4); MONO # 0.5 (0.1-0.6); MONO % 5.5 % (1.7-9.3); PLATELET COUNT 401 K/mm3 (130-400); REDCELL DISTRIBUTION WIDTH-CV 17.8 % (11.5-14.5)
[2018-03-11 15:50] LABS: HEMATOCRIT 33.5 % (37.0-47.0)
[2018-03-11 16:08] LABS: ALANINE AMINOTRANSFERASE 21 U/L (9-52); ALBUMIN 3.9 gm/dL (3.5-5.0); ALKALINE PHOSPHATASE 92 U/L (50-136); ANION GAP 8 mmol/L (7-16); AST,SGOT 29 U/L (15-37); BILIRUBIN,TOTAL 0.2 mg/dL (0.0-1.0); BLOOD UREA NITROGEN 5 mg/dL (7-17); C-REACTIVE PROTEIN 0.8 mg/dL (0.0-0.9); CALCIUM 9.3 mg/dL (8.4-10.2); CARBON DIOXIDE 30 mmol/L (22-30); CHLORIDE 101 mmol/L (98-107); CREATININE, serum 0.43 mg/dL (0.52-1.25); GLUCOSE 98 mg/dL (74-106); LIPASE 12 U/L (23-300); POTASSIUM 3.9 mmol/L (3.4-5.0); SODIUM 139 mmol/L (137-145); TOTAL PROTEIN 7.5 gm/dL (6.4-8.2)
[2018-03-11 16:22] LABS: TROPONIN-I < 0.012 ng/mL (0.000-0.034)
[2018-03-11 16:42] LABS: COLLECTION METHOD CLEAN CATCH
[2018-03-11 16:50] LABS: MUCOUS Present /lpf; PH 8 (5-8); SQUAMOUS EPITHELIAL 0-2 /hpf; URINE APPEARANCE Clear; URINE BACTERIA Rare /hpf; URINE BILIRUBIN Negative (NEGATIVE); URINE BLOOD Negative (NEGATIVE); URINE COLOR Straw; URINE GLUCOSE Negative (NEGATIVE); URINE KETONE Negative (NEGATIVE); URINE LEUKOCYTE ESTERASE Negative (NEGATIVE); URINE NITRATE Negative (NEGATIVE); URINE PROTEIN(semi-quant) Negative (NEGATIVE); URINE RBC 0-2 /hpf; URINE UROBILINOGEN Negative (NEGATIVE)
[2018-03-11 17:41] VITALS: BP 119/77; PULSE 82
== END 2018-03-11 17:41 | disposition home or self-care (01) ==
LOC: COL.ER 14:42
PROVIDERS: Emergency Medicine
DX: R11.10 Vomiting, unspecified (principal); R10.13 Epigastric pain; Z90.49 Acquired absence of other specified parts of digestive tract; Z90.89 Acquired absence of other organs; Z90.710 Acquired absence of both cervix and uterus; F17.210 Nicotine dependence, cigarettes, uncomplicated
CPT/HCPCS: J1170; J2405; J2550; J7030

== ENCOUNTER 2018-04-02 10:50 | Emergency (ER) | payer OTHER ==
[~2018-04-02] VITALS: Ht 165.1 cm; Wt 63.6 kg
[2018-04-02 10:53] VITALS: BP 130/68; TEMP 98.1
[2018-04-02 11:39] LABS: BASO # 0.1 (0.0-0.2); BASO % 0.8 % (0.0-2.0); EOS # 0.1 (0.0-0.7); EOS % 1.2 % (0-4.0); GRAN # 5.3 (1.4-6.5); GRAN % 73.5 % (42.2-75.2); HEMOGLOBIN 11.1 g/dl (12.5-16.0); LYMPH # 1.3 (1.2-3.4); LYMPH % 18.3 % (20.0-51.0); MEAN CELL VOLUME 79 fl (80.0-100.0); MEAN CORPUSCULAR HEMOGLOBIN 24 pg (27.0-31.0); MEAN CORPUSCULAR HGB CONC 30 g/dl (33.0-37.0); MEAN PLATELET VOLUME 9.2 fl (7.4-10.4); MONO # 0.4 (0.1-0.6); MONO % 5.8 % (1.7-9.3); PLATELET COUNT 422 K/mm3 (130-400); RED BLOOD COUNT 4.68 M/mm3 (4.10-5.30); REDCELL DISTRIBUTION WIDTH-CV 22.1 % (11.5-14.5)
[2018-04-02 11:40] LABS: HEMATOCRIT 36.8 % (37.0-47.0)
[2018-04-02 11:50] LABS: ALBUMIN 3.8 gm/dL (3.5-5.0); BILIRUBIN,TOTAL 0.3 mg/dL (0.0-1.0); CREATININE, serum 0.4 mg/dL (0.52-1.25); TOTAL PROTEIN 7.1 gm/dL (6.4-8.2)
[2018-04-02 11:53] LABS: C-REACTIVE PROTEIN 0.5 mg/dL (0.0-0.9)
[2018-04-02 13:11] LABS: COLLECTION METHOD CLEAN CATCH
[2018-04-02 13:17] LABS: MUCOUS Present /lpf; PH 6 (5-8); URINE APPEARANCE Hazy; URINE BACTERIA None Seen /hpf; URINE BILIRUBIN Negative (NEGATIVE); URINE BLOOD Negative (NEGATIVE); URINE COLOR Yellow; URINE GLUCOSE Negative (NEGATIVE); URINE KETONE Negative (NEGATIVE); URINE LEUKOCYTE ESTERASE Negative (NEGATIVE); URINE NITRATE Negative (NEGATIVE); URINE PROTEIN(semi-quant) Negative (NEGATIVE); URINE RBC 0-2 /hpf; URINE UROBILINOGEN Negative (NEGATIVE)
[2018-04-02 14:08] VITALS: PULSE 86
== END 2018-04-02 14:08 | disposition home or self-care (01) ==
LOC: COL.ER 10:50
PROVIDERS: Family Medicine
DX: G89.29 Other chronic pain (principal); R10.9 Unspecified abdominal pain; R11.2 Nausea with vomiting, unspecified; Z98.84 Bariatric surgery status
CPT/HCPCS: C9113; J1170; J2405; J2550; J7030